=== PATIENT | female | born 1980 | race Caucasian/White ===

== ENCOUNTER 2023-06-14 14:54 | Emergency (ER) | payer OTHER, SELFPAY ==
[2023-06-14 14:55] VITALS: BP 124/70; PULSE 119; RESP 16; TEMP 37.8; O2SAT 100; BMI 27.9
--- NOTE | 2023-06-14 15:24 | RAD_ITS ---
EXAM: XR CHEST, 2 VIEWS CLINICAL INDICATION: cough, sob TECHNIQUE: Frontal and lateral views of the chest. COMPARISON: No relevant prior studies available. FINDINGS: LUNGS AND PLEURAL SPACES: Unremarkable. No consolidation or edema. No pneumothorax. No effusion. HEART: Unremarkable. Cardiac silhouette not enlarged. MEDIASTINUM: Central airways and mediastinal contour are unremarkable. BONES/JOINTS: Unremarkable. No acute fracture. SOFT TISSUES: Unremarkable. RAD/Chest PA and Lateral IMPRESSION: No radiographic evidence of acute cardiopulmonary disease. Electronically Signed: Anthony Foy MD at 15:36 EST ,
[2023-06-14] MEDS: Ibuprofen 200 MG Tablet 400 MG PO (15:30)
--- NOTE | 2023-06-14 16:17 | EDS_ITS ---
HPI <MICHAEL Castellano - Last Filed: 06/14/23 17:53> History of Present Illness Chief Complaint: General Illness Narrative Narrative: Patient presenting with flulike symptoms she has had since Thursday. She reports that she has had fatigue, sore throat, body aches, productive cough, and an intermittent fever. Today, she developed some shortness of breath on exertion. She reports that multiple household members are sick with similar symptoms. PMH includes history of mitral valve prolapse. She denies any history of blood clots, recent surgery/procedures/travel/immobilization. She denies any chest pain, abdominal pain, nausea, and vomiting. PFSH <MICHAEL Castellano - Last Filed: 06/14/23 17:53> [facility] Medical History (Updated 06/14/23 @ 16:40 by MICHAEL Castellano) Mitral valve prolapse Social History Smoking Status: Never smoker ROS <MICHAEL Castellano - Last Filed: 06/14/23 17:53> ROS ED Constitutional Constitutional ED: Reports fever(s); Denies chills ENT ENT ED: Reports nasal congestion and sore throat Cardiovascular Cardiovascular: Denies chest pain or palpitations Respiratory/Chest Respiratory/Chest: Reports cough and dyspnea on exertion; Denies tachypnea or wheezing Gastrointestinal Gastrointestinal: Denies abdominal pain, nausea or vomiting Musculoskeletal Musculoskeletal: Reports other Details: Body aches Integumentary Denies rash Neurologic Neurologic: Denies weakness EXAM <MICHAEL Castellano Last Filed: 06/14/23 17:53> Physical Exam Const Vital Signs: 06/14/23 14:55 06/14/23 15:56 06/14/23 16:23 Temperature 100.1 F H Temperature Source Oral Pulse Rate 119 H 83 Respiratory Rate 16 18 Respiratory Effort Normal Non-Labored Respiratory Pattern Normal Blood Pressure 124/70 H 124/69 H Blood Pressure Mean 88 87 Pulse Ox 100 96 Oxygen Delivery Method Room Air Positive well nourished, well developed and no apparent distress General Appearance ED: well developed HEENT Reports normocephalic, head/scalp atraumatic and TM's clear HEENT Narrative: Posterior pharynx clear without any tonsillar exudate, uvula midline, no peritonsillar abscess Tympanic Membrane ED: Yes TM's clear bilateral Mouth ED: Yes moist mucous membranes normal Eyes PERRL and EOMs intact bilaterally Neck full ROM and supple Chest Wall inspection of chest normal Resp normal respiratory effort and clear to auscultation bilaterally Cardio regular rate and regular rhythm GI soft to palpation, non-tender, non-distended and no masses Back/Spine normal ROM and normal to inspection Extremity normal to inspection and full ROM Neuro oriented x3, CN's II-XII intact bilaterally, moves all extremities, no focal motor deficits and no sensory deficits noted Sensorium / Orientation: awake and alert Psych mental status grossly normal and thought process normal Skin no rashes or lesions noted and no wounds <Dr. Agustin Pathak DO - Last Filed: 06/14/23 20:01> Physical Exam Const Vital Signs: 06/14/23 14:55 06/14/23 15:56 06/14/23 16:23 Temperature 100.1 F H Temperature Source Oral Pulse Rate 119 H 83 Respiratory Rate 16 18 Respiratory Effort Normal Non-Labored Respiratory Pattern Normal Blood Pressure 124/70 H 124/69 H Blood Pressure Mean 88 87 Pulse Ox 100 96 Oxygen Delivery Method Room Air MDM <MICHAEL Castellano - Last Filed: 06/14/23 17:53> [facility] MDM Narrative Medical decision making narrative: Patient presenting with flulike symptoms she has had since Thursday. She is nontoxic-appearing and in no acute distress. Multiple household members sick with similar symptoms. COVID, influenza, and RSV swabs obtained. Chest x-ray obtained to rule out pneumonia and is negative. She will be given ibuprofen as she is slightly febrile. Patient is positive for influenza B. She is outside of the window for Tamiflu. Supportive care measures given. She has been given return instructions. She will be discharged home in stable condition and is comfortable with plan. Radiography X-Ray: Read by ED Physician and Read by Radiologist Diagnostic Testing: Clinical Impression(s) from Imaging Studies Chest X-Ray 06/14/23 15:24 IMPRESSION: No radiographic evidence of acute cardiopulmonary disease. Electronically Signed: Anthony Foy MD at 15:36 EST , <Dr. Agustin Pathak DO - Last Filed: 06/14/23 20:01> MDM Radiography Diagnostic Testing: Clinical Impression(s) from Imaging Studies Chest X-Ray 06/14/23 15:24 IMPRESSION: No radiographic evidence of acute cardiopulmonary disease. Electronically Signed: Anthony Foy MD at 15:36 EST Reading Location ID and State: [facility] / [place] , Service support , I have personally reviewed the patient's chest x-ray. Chest x-ray is unremarkable for pulmonary edema, pneumothorax, pneumonia or focal ca rdiopulmonary abnormality. Treatment and Re-Evaluation :: ED attending note: I evaluated the patient in conjunction with the DEVAUGHN. I agree with his/her statements and above findings. I have personally performed a face to face assessment of the patient and have reviewed the [facility] Note. I performed a substantive portion of the visit including all aspects of the following. I personally saw the patient performed chart review, physical exam, reviewed labs, imaging (if obtained), and formulated a treatment and management plan. This note was generated with [employer] dictation software. It may contain incorrect words, spelling, and punctuation that were not noted in review of the chart prior to signing. Discharge Plan Triage Chief Complaint: General Illness ED Midlevel Provider: Margaux Carson ED Provider: Agustin Pathak Dx/Rx/DC Orders Clinical Impression: Influenza B Instructions: ED Influenza (Adult) Primary Care Provider: Nickolas Valdes Referrals: Nickolas Valdes DO [Primary Care Provider] - 3-5 Days Activity Restrictions/Additional Instructions: Return for any worsening of your symptoms. Stay well-hydrated. Alternate Tylenol and ibuprofen for fevers as needed. Disposition Disposition: Home, Self Care Discharge Date/Time: 06/14/23 17:17
[2023-06-14 16:23] VITALS: BP 124/69; PULSE 83; RESP 18; O2SAT 96
== END 2023-06-14 17:17 | disposition home or self-care (01) ==
PROVIDERS: Emergency Provider Emergency Medicine; PCP Family Medicine; Visit Provider Emergency Medicine
DX: J10.1 Influenza due to other identified influenza virus with other respiratory manifestations (principal)
CPT/HCPCS: 71046; 87631; 99282